=== PATIENT | male | born 1965 | race Caucasian/White ===

== ENCOUNTER 2021-03-29 14:41 | Emergency (ER) | payer BC, SELFPAY ==
[2021-03-29 15:04] VITALS: BP 140/80; PULSE 95; RESP 18; TEMP 36.6; O2SAT 100
--- NOTE | 2021-03-29 17:50 | PC.NURSE ---
MET WITH THE PT, TO DISCUSS DELAY AND PLAN OF CARE. PT NOT WANTING TO STAY. INFORMED THE PT HE WAS THE NEXT PT TO COME BACK TO A ROOM. PT TOLD INTAKE NURSE THAT HE WAS JUST GOING TO LEAVE, HE HAD WAITED LONG ENOUGH.
== END 2021-03-29 17:50 | disposition left against medical advice (07) ==
LOC: ANHED 17:59
PROVIDERS: PCP Family Medicine
DX: R42 Dizziness and giddiness (principal)
CPT/HCPCS: 99199

== ENCOUNTER → 2023-04-19 09:59 | Outpatient (CLI) | payer BC, SELFPAY ==
--- NOTE | ~2023-04-19 | XR_ITS ---
Lumbosacral Spine: AP and lateral views Clinical History: Pain Findings: The normal lordotic curve is maintained. The vertebral bodies and posterior elements are i ntact. The intervertebral disc spaces are preserved. There are mild facet joint degenerative changes the lower lumbar spine. The sacroiliac joints are normally outlined. Impression: Mild facet joint degenerative changes at the lower lumbar spine. Reviewed, dictated and finalized at location . Impression: Mild facet joint degenerative changes at the lower lumbar spine.
== END ==
PROVIDERS: PCP Family Medicine; Visit Provider Nurse Practitioner Family
DX: M54.41 Lumbago with sciatica, right side (principal)
CPT/HCPCS: 72100

== ENCOUNTER 2023-10-05 12:24 | Outpatient (CLI) | payer BC, SELFPAY ==
--- NOTE | ~2023-10-05 | MR_ITS ---
MRI of the lumbar spine Clinical History: Back pain Technique: Axial T2-weighted images, and sagittal T1-weighted, T2-weighted, and and T2 fat-sat images were acquired. Findings: There is no fracture or sublocation the lumbar spine. Vertebral bodies maintain normal heig ht and alignment. No suspicious bone marrow signal abnormality seen. At L1-L2 and L2-L3, there is no significant disc bulge or herniation. No spinal canal stenosis or francy ral foraminal narrowing at these levels. At L3-L4, there is mild diffuse disc bulge with mild facet arthropathy. No central canal stenosis. Th ere is mild to moderate right neural foraminal narrowing. Left neural foramen preserved. At L4-L5, there is disc protrusion at the right paracentral to right foraminal region, with moderate to advanced facet arthropathy. There is minimal central canal stenosis. There is moderate to severe b ilateral neural foraminal narrowing. At L5-S1, there is noted significant disc bulge or herniation. There is mild to moderate facet arthro jayshree. No central canal stenosis or neural foraminal narrowing. Paravertebral soft tissues are unremarkable. Impression: Overall mild degenerative spondylosis, as above, worst at L4-L5. Reviewed, dictated and finalized at location . [facility] [employer] Impression: Overall mild degenerative spondylosis, as above, worst at L4-L5.
== END 2023-10-05 12:25 | disposition home or self-care (01) ==
LOC: ANHIMG 12:28
PROVIDERS: PCP Family Medicine; Visit Provider Nurse Practitioner Family
DX: M47.816 Spondylosis without myelopathy or radiculopathy, lumbar region (principal); M47.817 Spondylosis without myelopathy or radiculopathy, lumbosacral region; M54.42 Lumbago with sciatica, left side
CPT/HCPCS: 72148